=== PATIENT | female | born 1960 | race Caucasian/White ===

== ENCOUNTER → 2020-03-28 | Outpatient (CLI) | payer MEDICARE ==
[~2020-03-28] MED LIST: CYMBALTA60 MG PO; GABAPENTIN400 MG PO; METFORMIN1000 MG PO; NAPROXEN250 MG PO; PROAIR HFA8.5 GM INH; ZITHROMAX250 MG PO
== END | disposition home or self-care (01) ==
LOC: COVID19 12:30
DX: B34.9 Viral infection, unspecified (principal); Z20.818 Contact with and (suspected) exposure to other bacterial communicable diseases

== ENCOUNTER → 2021-09-21 | Outpatient (CLI) | payer MEDICARE | END | disposition home or self-care (01) | LOC: COVID19 17:06 | PROVIDERS: ATTEND Internal Medicine | DX: U07.1 COVID-19 (principal) ==